=== PATIENT | male | born 1940 | race African-American/Black ===

== ENCOUNTER 2018-08-08 19:49 | Observation (INO) | payer OTHER ==
[~2018-08-08] VITALS: Ht 167.6 cm; Wt 64.9 kg
[~2018-08-08 19:49] MED LIST: ACET500T33 PO; AMLO5TAB4 PO; BUDE10.2 IH; CETI10TA22 PO; CHOL100013 PO; CRESTOR10 MG PO; DIPH25CA44 PO; LISI10TA2 PO; MIRA50TA PO; MONT10TA6 PO; OMEG1CAP27 PO; OMEP20CA10 PO; SOLI10TA2 PO; TRIA15CR TP; high blood pressure
[2018-08-08 20:13] LABS: BASO # 0.1 x10^3/uL (0.0-0.2); BASO % 1 % (0-3); EOS # 0.1 x10^3/uL (0.0-0.7); EOS % 2 % (0-3); HEMATOCRIT 44.6 % (39.0-53.0); HEMOGLOBIN 14.7 g/dL (13.0-17.5); LYMPH # 2.4 x10^3/uL (1.0-4.8); LYMPH % 40 % (24-48); MEAN CORPUSCULAR HEMOGLOBIN 30 pg (25-35); MEAN CORPUSCULAR HGB CONC 33 g/dL (31-37); MEAN CORPUSCULAR VOLUME 91 fL (79-100); MONO # 0.3 x10^3/uL (0.0-1.1); MONO % 6 % (0-9); NEUT % 51 % (31-73); PLATELET COUNT 241 x10^3/uL (140-400); RED BLOOD COUNT 4.88 x10^6/uL (4.30-5.70); RED CELL DISTRIBUTION WIDTH 14.3 % (11.5-14.5); WHITE BLOOD COUNT 5.9 x10^3/uL (4.0-11.0)
--- NOTE | 2018-08-08 20:17 | PHYS DOC ---
Past Medical History Past Medical History: High Cholesterol, Hypertension Additional Past Medical Histor: PROSTATE Past Surgical History: Other Additional Past Surgical Histo: PROSTATE Additional Information: nonsmoker Alcohol Use: None Drug Use: None Adult General Chief Complaint Chief Complaint: CHEST PAIN HPI HPI Patient is a 77-year-old male who is presenting with 2 weeks of left-sided chest pain. He reports that he came today because he has a family history of heart attacks and he felt like he needed to get checked out because it wasn't going away. He reports that the pain is sharp, is not made worse by activity, and he has not taken anything for the pain. 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 He reports that he has had a lot of funerals in the family within the last year and thinks that he may be suffering from some increased stress. He has a history of hypertension and hypercholesterolemia, but denies any past medical history with heart problems. He has a history of prostate cancer, his prostate was removed surgically and he takes oxybutynin for urinary frequency. He denies increased pain with a deep breath and palpation. He reports that he has had a mild cough for the last week. He denies trauma. Review of Systems Review of Systems Constitutional: Denies fever or chills [] Eyes: Denies change in visual acuity, redness, or eye pain [] HENT: Denies nasal congestion or sore throat [] Respiratory: Denies cough or shortness of breath [] Cardiovascular: Reports chest pain, denies palpitations [] GI: Denies abdominal pain, nausea, vomiting, and diarrhea [] Musculoskeletal: Denies back pain or joint pain [] Integument: Denies rash or skin lesions [] Neurologic: Denies headache, focal weakness or sensory changes [] Complete systems were reviewed and found to be within normal limits, except as documented in this note. Current Medications Current Medications Current Medications Medications (Trade) Dose Ordered Sig/Cookie Start Time Stop Time Status Last Admin Dose Admin Aspirin (Lio Aspirin) 325 mg 1X ONCE 08/08/18 20:30 08/08/18 20:31 DC 08/08/18 20:16 325 MG Sodium Chloride 1,000 ml @ 1,000 mls/hr 1X ONCE 08/08/18 20:30 08/08/18 21:29 DC 08/08/18 20:14 1,000 MLS/HR Allergies Allergies Allergies Coded Allergies Type Severity Reaction Last Updated Verified No Known Drug Allergies 05/22/14 No Physical Exam Physical Exam Constitutional: Well developed, well nourished, no acute distress, non-toxic appearance. [] HENT: Normocephalic, atraumatic, nose normal. [] Eyes: Conjunctiva normal, no discharge. [] Neck: Normal range of motion, no tenderness. [] Cardiovascular: Heart rate regular rhythm, no murmur, denies tenderness to palpation of the left chest [] Lungs & Thorax: Bilateral breath sounds clear to auscultation [] Abdomen: Bowel sounds normal, soft, no tenderness. [] Skin: Warm, dry, no erythema, no rash. [] Back: No tenderness, no CVA tenderness. [] Extremities: No tenderness, no edema. [] Neurologic: Alert and oriented X 3, no focal deficits noted. [] Psychologic: Affect normal, judgement normal, mood normal. [] Current Patient Data Vital Signs Vital Signs Date Time Temp Pulse Resp B/P (MAP) Pulse Ox O2 Delivery O2 Flow Rate FiO2 08/08/18 21:58 62 16 146/80 (102) 97 Room Air 08/08/18 19:55 98.9 98.9 Lab Values Laboratory Tests Test 08/08/18 20:00 White Blood Count 5.9 x10^3/uL (4.0-11.0) Red Blood Count 4.88 x10^6/uL (4.30-5.70) Hemoglobin 14.7 g/dL (13.0-17.5) Hematocrit 44.6 % (39.0-53.0) Mean Corpuscular Volume 91 fL (79-100) Mean Corpuscular Hemoglobin 30 pg (25-35) Mean Corpuscular Hemoglobin Concent 33 g/dL (31-37) Red Cell Distribution Width 14.3 % (11.5-14.5) Platelet Count 241 x10^3/uL (140-400) Neutrophils (%) (Auto) 51 % (31-73) Lymphocytes (%) (Auto) 40 % (24-48) Monocytes (%) (Auto) 6 % (0-9) Eosinophils (%) (Auto) 2 % (0-3) Basophils (%) (Auto) 1 % (0-3) Neutrophils # (Auto) 3.0 x10^3uL (1.8-7.7) Lymphocytes # (Auto) 2.4 x10^3/uL (1.0-4.8) Monocytes # (Auto) 0.3 x10^3/uL (0.0-1.1) Eosinophils # (Auto) 0.1 x10^3/uL (0.0-0.7) Basophils # (Auto) 0.1 x10^3/uL (0.0-0.2) Prothrombin Time 13.1 SEC (11.7-14.0) Prothrombin Time INR 1.0 (0.8-1.1) PTT 31 SEC (24-38) D-Dimer (Marline) 0.36 ug/mlFEU (0.00-0.50) Sodium Level 144 mmol/L (136-145) Potassium Level 4.1 mmol/L (3.5-5.1) Chloride Level 106 mmol/L (98-107) Carbon Dioxide Level 27 mmol/L (21-32) Anion Gap 11 (6-14) Blood Urea Nitrogen 15 mg/dL (8-26) Creatinine 1.2 mg/dL (0.7-1.3) Estimated GFR (Cockcroft-Gault) 71.4 BUN/Creatinine Ratio 13 (6-20) Glucose Level 91 mg/dL (70-99) Calcium Level 8.9 mg/dL (8.5-10.1) Magnesium Level 2.3 mg/dL (1.8-2.4) Total Bilirubin 0.3 mg/dL (0.2-1.0) Aspartate Amino Transferase (AST) 31 U/L (15-37) Alanine Aminotransferase (ALT) 48 U/L (16-63) Alkaline Phosphatase 68 U/L (46-116) Creatine Kinase 376 U/L (39-308) H Creatine Kinase MB (Mass) 2.4 ng/mL (0.0-3.6) Creatine Kinase MB Relative Index 0.6 % (0-4) Troponin I Quantitative < 0.017 ng/mL (0.000-0.055) NZ-Xmt-I-Type Natriuretic Peptide 48 pg/mL (0-449) Total Protein 7.4 g/dL (6.4-8.2) Albumin 3.8 g/dL (3.4-5.0) Albumin/Globulin Ratio 1.1 (1.0-1.7) Lipase 109 U/L (73-393) Laboratory Tests 08/08/18 20:00 Laboratory Tests 08/08/18 20:00 EKG EKG EKG @1956 Rate of 74 bpm, sinus rhythm, left axis deviation, left anterior fascicular block, no ST elevation Radiology/Procedures Radiology/Procedures PROCEDURE: CHEST PA & LATERAL EXAM: PA and Lateral Views of the Chest DATE: 08/08/2018 9:20 PM INDICATION: CHEST PAIN COMPARISON: 12/21/2014, 05/22/2014 FINDINGS: The heart is not enlarged. Aorta is mildly tortuous. Mediastinal and hilar contours are normal. No focal parenchymal airspace opacity. Calcified granulomas are seen within the right lung. No pleural effusion or pneumothorax. Eventration left hemidiaphragm. IMPRESSION: 1. No radiographic evidence for acute cardiopulmonary process. Electronically signed by: Aj Villalta MD (08/09/2018 5:56 AM) [facility] Course & Med Decision Making Course & Med Decision Making Pertinent Labs and Imaging studies reviewed. (See chart for details) Patient is a 77-year-old male is presenting with 2 weeks of dull left-sided chest pain that became sharp this morning. Labs and imaging obtained and posted to chart. EKG and initial troponin within normal limits. D-dimer negative, chest x-ray clear showing no acute pathology on initial ED reviewed. Past medical history of hypercholesterolemia and hypertension with a family history of heart attacks. Heart score of 5. Discussed admission with patient for further evaluation of cardiac etiology because of concerning history. Pain addressed and fluids administered. Patient requiring admission for further evaluation and treatment. Discussed with Dr. Orlando (PCP) who is in agreement with admission. Discussed findings and plan with patient and family, who acknowledge understanding and agreement. Dragon Disclaimer Dragon Disclaimer This electronic medical record was generated, in whole or in part, using a voice recognition dictation system. Departure Departure Impression: Primary Impression: Chest pain Disposition: ADMITTED INPATIENT Admitting Physician: Nasir Orlando Condition: STABLE Referrals: NASIR ORLANDO MD (PCP) Problem Qualifiers Primary Impression: Chest pain Chest pain type: unspecified Qualified Codes: R07.9 - Chest pain, unspecified SANTACRUZ,MARY ELLEN R DO Aug 08, 2018 20:17
[2018-08-08 20:25] LABS: CALCIUM 8.9 mg/dL (8.5-10.1); CREATININE 1.2 mg/dL (0.7-1.3); GFR 71.4; POTASSIUM 4.1 mmol/L (3.5-5.1)
[2018-08-08] MEDS ORDERED: ASPIRIN 325 MG TABLET PO ONE (20:30)
[2018-08-08] MEDS ORDERED: IV NORMAL SALINE 1000ML BAG 1,000 ML IV ONE (20:30)
[2018-08-08 20:34] LABS: PROTHROMBIN TIME PATIENT 13.1 SEC (11.7-14.0)
[2018-08-08 20:37] LABS: ALBUMIN 3.8 g/dL (3.4-5.0); ALBUMIN/GLOBULIN RATIO 1.1 (1.0-1.7); D-DIMER 0.36 ug/mlFEU (0.00-0.50); MAGNESIUM 2.3 mg/dL (1.8-2.4); TOTAL BILIRUBIN 0.3 mg/dL (0.2-1.0); TOTAL PROTEIN 7.4 g/dL (6.4-8.2)
[2018-08-08 22:30] LABS: BILIRUBIN,URINE NEGATIVE (NEG); CLARITY,URINE CLEAR; COLOR,URINE YELLOW; NITRITE,URINE NEGATIVE (NEG); PROTEIN,URINE NEGATIVE (NEG-TRACE); UROBILINOGEN,URINE 0.2 mg/dL (0.2 mg/dL)
[2018-08-08 22:38] LABS: BACTERIA,URINE 0 /HPF (0-FEW); RBC,URINE RARE /HPF (0-2); WBC,URINE OCC /HPF (0-4)
[2018-08-08] MEDS ORDERED: fentaNYL PF VIAL 100 MCG/2 ML VIAL IV PRN (23:00)
[2018-08-08] MEDS ORDERED: ONDANSETRON PF 4 MG/2 ML VIAL. IV PRN (23:00)
[2018-08-08 23:38] VITALS: BP 162/74
[2018-08-09] MEDS ORDERED: ATOR20TA58 PO (01:28)
[2018-08-09] MEDS ORDERED: OXYB10TA PO (01:28)
[2018-08-09 03:00] VITALS: BP 140/74
--- NOTE | 2018-08-09 05:58 | RAD ---
EXAM: PA and Lateral Views of the Chest DATE: 08/08/2018 9:20 PM INDICATION: CHEST PAIN COMPARISON: 12/21/2014, 05/22/2014 FINDINGS: The heart is not enlarged. Aorta is mildly tortuous. Mediastinal and hilar contours are normal. No focal parenchymal airspace opacity. Calcified granulomas are seen within the right lung. No pleural effusion or pneumothorax. Eventration left hemidiaphragm. IMPRESSION: 1. No radiographic evidence for acute cardiopulmonary process. Electronically signed by: Aj Villalta MD (08/09/2018 5:56 AM) [facility]
[2018-08-09 07:00] VITALS: BP 156/78
[2018-08-09] MEDS ORDERED: ACETAMINOPHEN 325 MG TABLET. PO PRN (09:15)
[2018-08-09] MEDS ORDERED: OXYBUTYNIN CHLORIDE 5 MG TABLET PO SCH (10:00)
[2018-08-09] MEDS ORDERED: amLODIPine BESYLATE 5 MG TABLET PO SCH (10:00)
[2018-08-09 11:00] VITALS: BP 150/80
--- NOTE | 2018-08-09 11:02 | PDOC ---
Provider Note Provider Note Patient seen. History and Physical dictated. See dictation#[id number] NASIR ORLANDO MD Aug 09, 2018 11:02
[2018-08-09] MEDS ORDERED: ASPI81TA50 PO (11:05)
--- NOTE | 2018-08-09 11:07 | DISCH ---
DISCHARGE INSTRUCTIONS Condition on Discharge Condition on Discharge: Stable Activity After Discharge Activity Instructions for Disc: Resume previous activity Diet after Discharge Diet after Discharge: Cardiac Diet Texture: Regular Checks after Discharge Checks after discharge: Check blood press - daily Contacting the after DC Call your doctor for: Concerns you may have Follow-Up Follow up with: Dr. NASIR Orlando in 5 days NASIR ORLANDO MD Aug 09, 2018 11:07
--- NOTE | 2018-08-09 11:12 | PDOC2 ---
CARDIOLOGY CONSULT NOTE CHEIF COMPLAINT: chest pain HPI: 77 year old AAM with a past medical history of HTN treated with Norvasc, hypercholesterolemia treated with atorvastatin, and family history significant for heart disease and DM2 presents to ED with a 2-week history of left mid- axillary region intermittent chest pain. Pt describes the chest pain as a "tightening" or "pressure" that sometimes radiates to his left neck/shoulder. He denies any triggers or aggravating factors. Patient notes that days before onset, he was lifting heavy tires and thinks that the pain is due to strain. 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 He denies fatigue , dizziness/lightheadedness, or syncopal episodes. Patient states he is very active and does not have any problems at all with work or ADLs. PMHX: Hypertension, Hypercholesterolemia, prostate cancer s/p chemotherapy and radiation 2005 SOCHX: never smoker, no alcohol use, no illicit drug use FAMHX: significant for heart disease and DM2 CURRENT MEDS: Current Medications Medications (Trade) Dose Ordered Sig/Cookie Start Time Stop Time Status Last Admin Dose Admin Acetaminophen (Tylenol) 650 mg PRN Q6HRS PRN 08/09/18 09:15 Amlodipine Besylate (Norvasc) 5 mg DAILY 08/09/18 10:00 08/09/18 10:26 5 MG Aspirin (Lio Aspirin) 325 mg 1X ONCE 08/08/18 20:30 08/08/18 20:31 DC 08/08/18 20:16 325 MG Atorvastatin Calcium (Lipitor) 20 mg HS 08/09/18 21:00 Fentanyl Citrate (Fentanyl 2ml Vial) 25 mcg PRN Q2HRS PRN 08/08/18 23:00 Ondansetron HCl (Zofran) 4 mg PRN Q8HRS PRN 08/08/18 23:00 08/09/18 22:59 Oxybutynin Chloride (Ditropan) 5 mg BID 08/09/18 10:00 08/09/18 10:26 5 MG Sodium Chloride 1,000 ml @ 1,000 mls/hr 1X ONCE 08/08/18 20:30 08/08/18 21:29 DC 08/08/18 20:14 1,000 MLS/HR ALLERGIES: Allergies Coded Allergies Type Severity Reaction Last Updated Verified No Known Drug Allergies 05/22/14 No ROS: Gen: no fatigue, weakness Head: no headache, nausea/vomiting Cardiac: no angina, FISHER, edema Resp: no SOB : +urinary frequency, incontinence PHYSICAL EXAM: Vital Signs: Vital Signs Date Time Temp Pulse Resp B/P (MAP) Pulse Ox O2 Delivery O2 Flow Rate FiO2 08/09/18 10:26 61 156/78 08/09/18 07:40 Room Air 08/09/18 07:00 97.9 18 98 97.9 I & O Intake and Output 08/09/18 06:59 Intake Total 240 ml Output Total 350 ml Balance -110 ml Intake Oral 240 ml Output Urine Total 350 ml # Voids 3 Physical Exam: Gen: NAD, pleasant, well-appearing and well-nourished. Neck: supple, normal ROM, no carotid bruits. Heart: Regular rate and rhythm, no murmurs, rubs, or gallops. Lungs: clear to auscultation bilaterally, no wheezes, rales, or rhonchi. Extr: normal ROM, no edema, +2 peripheral pulses palpable bilaterally. DIAGNOSTIC TESTING: EKG: SR with RBBB CXR: negative. Trop negative. ASSESSMENT: 1. Chest pain - Probable MSK, less likely UA. 2. HTN 3. Dyslipidemia 4. DM2 PLAN: 1. Will plan for outpt stress testing given his risk factors. 2. Consider increase in amlodipine for BP control. 3. Overall, low risk given atypical nature, negative enzymes and no significant EKG abnormalities. CAMPOS GRADY MD Aug 09, 2018 11:12
--- NOTE | 2018-08-09 14:44 | EKG ---
[facility] [address] [place] [address] Test Date: 2018-08-08 Test Time: 19:56:11 Pat Name: NHUNG ROCKWELL Department: Room: 250 1 Gender: M Clinical Lab Technologist: : 1940 Requested By: MARY ELLEN SANTACRUZ Order Number: [id number] Reading MD: Sky Marcum Measurements Intervals [place] Rate: 74 P: 36 [place]: 192 QRS: -65 QRSD: 128 T: 7 QT: 390 QTc: 433 Interpretive Statements SINUS RHYTHM ABNORMAL LEFT AXIS DEVIATION LEFT ANTERIOR FASCICULAR BLOCK RIGHT BUNDLE BRANCH BLOCK RVH WITH REPOLARIZATION ABNORMALITY Electronically Signed On 08-18-2018 12:35:23 CDT by Sky Marcum
--- NOTE | 2018-08-09 14:53 | NUR ---
Discharge Note: NHUNG ROCKWELL Discharge instructions and discharge home medications reviewed with Patient and a copy given. All questions have been answered and understanding verbalized. The following instructions and handouts were given: cardiac diet, chest pain, follow up appointments, medications. Discontinued lines and drains: IV removed, no lines present. Patient discharged to home. left via wheelchair to private vehicle.
--- NOTE | 2018-08-09 15:23 | HP ---
ADMIT DATE: 08/08/2018 ADMITTING PHYSICIAN: Nasir Orlando MD. HISTORY OF PRESENT ILLNESS: This 77-year-old male started having chest pains on the left side of the chest since last Saturday. On Saturday, he had lifted some heavy weights including tiles. The pain lasts a few seconds at a time, sometimes with slight spasm. It is not radiating. The patient denies any dyspnea or pain on inspiration. The patient denies any nausea, heartburn, cold, cough, congestion, fever or chills. He denies any sweating, dizziness or palpitations when he has these episodes. Yesterday, he felt that it was getting slightly worse and because of the recurrent pain, he came to the Emergency Room. In the Emergency Room, EKG showed left anterior fascicular block with some intraventricular conduction delay, no old EKG available for comparison. Cardiac enzymes and troponin levels were normal, although CPK was elevated at 376. Because of the chest pains, it was decided to admit the patient for further evaluation and management. SYSTEMS REVIEW: At present time, the patient is feeling better. His pain is improving. He states that he has had some episodes of anxiety recently. He denies any dyspnea, dizziness, palpitations or chest pains at this time. Other systems reviewed and are negative. PAST MEDICAL HISTORY: The patient has a history of hypertension, hyperlipidemia. I do believe previously, he has had elevated CPK. PAST SURGICAL HISTORY: The patient had carcinoma of prostate and prostate surgery followed by urinary incontinence. SOCIAL HISTORY: No history of smoking, alcoholism or drug abuse. FAMILY HISTORY: One brother had myocardial infarction. He in his 70s and one brother had myocardial infarction and asthma. Father had cancer, type not known. MEDICATIONS: Reviewed and reconciled. ALLERGIES: None known any. PHYSICAL EXAMINATION: VITAL SIGNS: Temperature 98.9, pulse 76 per minute, respirations 16 per minute, blood pressure 159/84 mmHg on admission and went up to 180/100 mmHg. GENERAL: The patient is alert, oriented x 3 and not in any acute distress. He is slightly anxious. EYES: Pupils reacting to light. Conjunctivae pink. Sclerae muddy. HENT: Unremarkable. SKIN: Warm and dry. There is no cyanosis. NECK: Supple. JVP normal. No thyromegaly. Trachea midline. LUNGS: Decreased breath sounds at bases, clear. CARDIOVASCULAR: S1, S2 regular. ABDOMEN: Soft, nontender, no guarding, no rigidity. Liver, spleen, kidney not palpable. Bowel sounds present. EXTREMITIES: No edema. CENTRAL NERVOUS SYSTEM: Moves all extremities. No acute changes. Alert and oriented. CHEST: No tenderness in the left upper chest. LABORATORY FINDINGS: CPK is 376. Troponin levels are normal. Albumin 3.8, sodium 144, potassium 4.1, BUN 15, creatinine 1.2, WBC count 5.9, hemoglobin 14.7. INR 1. Urinalysis is negative. Chest x-ray did not show any acute changes. FINAL DIAGNOSES: 1. Chest pain, possibly musculoskeletal. 2. Hypertension. 3. Carcinoma of prostate. 4. Urinary incontinence. 5. Anxiety. PLAN: 1. The patient is doing well now. We will check with the way of Cardiology consultation with Dr. Forte. If it is okay with the hospital food service worker, we will discharge him later today. He has been kept n.p.o. for the stress test. Clinically, doing well. 2. Follow up in the office in five days. DIET: Cardiac. ACTIVITY: As tolerated. We will start baby aspirin 81 mg daily. For details, please refer to the orders. Discharge management 35 minutes. Other discharge management 45 minutes. NASIR ORLANDO MD DR: ARMANDO/kami JOB#: [id number] / [id number]
[2018-08-09] MEDS ORDERED: ATORVASTATIN CALCIUM 20 MG TABLET PO SCH (21:00)
== END 2018-08-09 14:20 | disposition home or self-care (01) ==
LOC: ER 19:49 → 2 SOUTH 22:15
PROVIDERS: ADMIT Internal Medicine; ATTEND Internal Medicine
DX: R07.89 Other chest pain (principal); E78.00 Pure hypercholesterolemia, unspecified; I10 Essential (primary) hypertension; I44.4 Left anterior fascicular block; E78.5 Hyperlipidemia, unspecified; R32 Unspecified urinary incontinence; F41.9 Anxiety disorder, unspecified; Z82.49 Family history of ischemic heart disease and other diseases of the circulatory system; Z85.46 Personal history of malignant neoplasm of prostate
CPT/HCPCS: 36415; 71046; 80053; 81001; 82553; 83690; 83735; 83880; 84484; 85025; 85379; 85610; 85730; 93005; 99284; G0378; G0379; J7030

== ENCOUNTER 2019-03-19 10:53 | Emergency (ER) | payer OTHER ==
[~2019-03-19] VITALS: Ht 160 cm; Wt 66.2 kg
[~2019-03-19 10:53] MED LIST changes: +ASPI81TA50 PO; +ATOR20TA58 PO; +MONT10TA49 PO; -MONT10TA6 PO; +OXYB10TA2 PO
--- NOTE | 2019-03-19 12:21 | EKG ---
[facility] [address] [place] [address] Test Date: 2019-03-19 Test Time: 12:19:30 Pat Name: NHUNG ROCKWELL Department: Room: Gender: M Software Team Leader: : 1940 Requested By: BRIEN JAMA Order Number: [id number] Reading MD: Sky Marcum Measurements Intervals [place] Rate: 81 P: 48 MS: 188 QRS: -58 QRSD: 128 T: 10 QT: 388 QTc: 451 Interpretive Statements SINUS RHYTHM ABNORMAL LEFT AXIS DEVIATION LEFT ANTERIOR FASCICULAR BLOCK RIGHT BUNDLE BRANCH BLOCK ABNORMAL ECG Electronically Signed On 03-23-2019 14:45:59 VICE PRESIDENT OF OPERATIONS by Sky Marcum
[2019-03-19 12:23] LABS: BASO # 0.1 x10^3/uL (0.0-0.2); BASO % 1 % (0-3); EOS # 0.1 x10^3/uL (0.0-0.7); EOS % 2 % (0-3); HEMATOCRIT 47.8 % (39.0-53.0); LYMPH # 2.2 x10^3/uL (1.0-4.8); LYMPH % 32 % (24-48); MEAN CORPUSCULAR HEMOGLOBIN 31 pg (25-35); MEAN CORPUSCULAR HGB CONC 34 g/dL (31-37); MEAN CORPUSCULAR VOLUME 92 fL (79-100); MONO # 0.5 x10^3/uL (0.0-1.1); MONO % 7 % (0-9); NEUT % 58 % (31-73); PLATELET COUNT 237 x10^3/uL (140-400); RED BLOOD COUNT 5.18 x10^6/uL (4.30-5.70); RED CELL DISTRIBUTION WIDTH 14.1 % (11.5-14.5); WHITE BLOOD COUNT 6.8 x10^3/uL (4.0-11.0)
--- NOTE | 2019-03-19 12:42 | RAD ---
Single view of the chest. 03/19/2019 12:31 PM Indication: Syncope Comparison: Chest radiograph August 08, 2018 Findings: Elevation of the left hemidiaphragm is similar. There is no focal consolidation. There is no pleural effusion or pneumothorax. Heart size is normal. No acute osseous abnormalities are seen. Impression: No evidence of acute cardiopulmonary process. Electronically signed by: Aren Louis MD (03/19/2019 12:39 PM) [facility]
--- NOTE | 2019-03-19 12:47 | RAD ---
CT HEAD WITHOUT CONTRAST 03/19/2019 12:13 PM Indication: Syncope Comparison: CT head without contrast December 21, 2014 Procedure: Multidetector CT imaging of the head was performed without the administration of contrast. Findings: There is no evidence of acute intracranial hemorrhage. There is no evidence of acute territorial infarction. Please note that CT is limited for evaluation of acute ischemia. Patchy periventricular and deep white hypoattenuation is similar to comparison study suggestive of chronic small vessel disease. No mass effect or midline shift is identified . The ventricles and basilar cisterns have an appropriate appearance. No abnormal extra-axial fluid collections are seen. No acute osseous changes are identified. Impression: No evidence of acute intracranial abnormality CT DOSING PQRS STATEMENT: One or more of the following individualized dose reduction techniques were utilized for this examination: 1. Automated exposure control 2. Adjustment of the mA and/or kV according to patient size 3. Use of iterative reconstruction technique Electronically signed by: Aren Louis MD (03/19/2019 12:44 PM) [id number]
[2019-03-19 13:11] LABS: CALCIUM 8.8 mg/dL (8.5-10.1); CREATININE 1.2 mg/dL (0.7-1.3); GFR 71.2; POTASSIUM 3.9 mmol/L (3.5-5.1)
[2019-03-19 13:17] LABS: ALBUMIN 3.7 g/dL (3.4-5.0); ALBUMIN/GLOBULIN RATIO 0.8 (1.0-1.7); MAGNESIUM 2.2 mg/dL (1.8-2.4); TOTAL BILIRUBIN 0.4 mg/dL (0.2-1.0); TOTAL PROTEIN 8.1 g/dL (6.4-8.2)
[2019-03-19 14:06] LABS: BILIRUBIN,URINE NEGATIVE (NEG); CLARITY,URINE CLEAR; COLOR,URINE YELLOW; NITRITE,URINE NEGATIVE (NEG); PROTEIN,URINE NEGATIVE (NEG-TRACE); UROBILINOGEN,URINE 0.2 mg/dL (0.2 mg/dL)
[2019-03-19 14:11] LABS: BARBITURATES NEG (NEG); BENZODIAZEPINES POS (NEG); CANNABINOIDS NEG (NEG); COCAINE NEG (NEG); METHADONE NEG (NEG); OPIATES NEG (NEG); PHENCYCLIDINE NEG (NEG)
[2019-03-19 14:13] LABS: BACTERIA,URINE 0 /HPF (0-FEW); RBC,URINE OCC /HPF (0-2); WBC,URINE 0 /HPF (0-4)
[2019-03-19 14:14] LABS: SQUAMOUS EPITHELIAL CELL,UR OCC /LPF
[2019-03-19 14:19] LABS: AMPHETAMINE/METHAMPHETAMINE NEG (NEG)
[2019-03-19 14:51] VITALS: BP 148/82
--- NOTE | 2019-03-19 15:16 | PHYS DOC ---
Past Medical History Past Medical History: High Cholesterol, Hypertension Additional Past Medical Histor: PROSTATE CA Past Surgical History: Other Additional Past Surgical Histo: PROSTATE Alcohol Use: None Drug Use: None Adult General Chief Complaint Chief Complaint: SYNCOPE HPI HPI Patient is a 78 year old male patient who presents to the ED today to be evaluated for falling yesterday. Patient had cataract surgery to the left eye yesterday, went home, and apparently fell while walking. Patient himself denies any loss of consciousness. Family reports he could've passed out. Patient denies any other symptoms. Review of Systems Review of Systems Constitutional: Denies fever or chills [] Eyes: Denies change in visual acuity, redness, or eye pain [] HENT: Denies nasal congestion or sore throat [] Respiratory: Denies cough or shortness of breath [] Cardiovascular: No additional information not addressed in HPI [] GI: Denies abdominal pain, nausea, vomiting, bloody stools or diarrhea [] : Denies dysuria or hematuria [] Musculoskeletal: Reports falling. Denies back pain or joint pain [] Integument: Denies rash or skin lesions [] Neurologic: Reports possible syncope. Denies headache, focal weakness or sensory changes [] All other systems were reviewed and found to be within normal limits, except as documented in this note. Allergies Allergies Allergies Coded Allergies Type Severity Reaction Last Updated Verified No Known Drug Allergies 05/22/14 No Physical Exam Physical Exam Constitutional: Well developed, well nourished, no acute distress, non-toxic appearance. [] HENT: Normocephalic, atraumatic, bilateral external ears normal, oropharynx moist, no oral exudates, nose normal. [] Eyes: Bilateral eyes with dark glasses. PERRLA, EOMI, left conjunctiva is slightly red post op, no discharge. [] Neck: Normal range of motion, no tenderness, supple, no stridor. [] Cardiovascular:Heart rate regular rhythm, no murmur [] Lungs & Thorax: Bilateral breath sounds clear to auscultation [] Abdomen: Bowel sounds normal, soft, no tenderness, no masses, no pulsatile masses. [] Skin: Warm, dry, no erythema, no rash. [] Back: No tenderness, no CVA tenderness. [] Extremities: No tenderness, no cyanosis, no clubbing, ROM intact, no edema. [] Neurologic: Alert and oriented X 3, normal motor function, normal sensory function, no focal deficits noted. Cranial nerves II through XII intact. Psychologic: Affect normal, judgement normal, mood normal. [] Current Patient Data Vital Signs Vital Signs Date Time Temp Pulse Resp B/P (MAP) Pulse Ox O2 Delivery O2 Flow Rate FiO2 03/19/19 14:51 77 148/82 (104) 98 03/19/19 12:00 98.3 16 Room Air 98.3 Lab Values Laboratory Tests Test 03/19/19 12:10 03/19/19 12:50 03/19/19 13:47 White Blood Count 6.8 x10^3/uL (4.0-11.0) Red Blood Count 5.18 x10^6/uL (4.30-5.70) Hemoglobin 16.0 g/dL (13.0-17.5) Hematocrit 47.8 % (39.0-53.0) Mean Corpuscular Volume 92 fL (79-100) Mean Corpuscular Hemoglobin 31 pg (25-35) Mean Corpuscular Hemoglobin Concent 34 g/dL (31-37) Red Cell Distribution Width 14.1 % (11.5-14.5) Platelet Count 237 x10^3/uL (140-400) Neutrophils (%) (Auto) 58 % (31-73) Lymphocytes (%) (Auto) 32 % (24-48) Monocytes (%) (Auto) 7 % (0-9) Eosinophils (%) (Auto) 2 % (0-3) Basophils (%) (Auto) 1 % (0-3) Neutrophils # (Auto) 4.0 x10^3/uL (1.8-7.7) Lymphocytes # (Auto) 2.2 x10^3/uL (1.0-4.8) Monocytes # (Auto) 0.5 x10^3/uL (0.0-1.1) Eosinophils # (Auto) 0.1 x10^3/uL (0.0-0.7) Basophils # (Auto) 0.1 x10^3/uL (0.0-0.2) Creatine Kinase 463 U/L (39-308) H Creatine Kinase MB (Mass) 3.0 ng/mL (0.0-3.6) Creatine Kinase MB Relative Index 0.6 % (0-4) Troponin I Quantitative < 0.017 ng/mL (0.000-0.055) BE-Jzg-G-Type Natriuretic Peptide 40 pg/mL (0-449) Thyroid Stimulating Hormone (TSH) 0.638 uIU/mL (0.358-3.74) Sodium Level 143 mmol/L (136-145) Potassium Level 3.9 mmol/L (3.5-5.1) Chloride Level 105 mmol/L (98-107) Carbon Dioxide Level 28 mmol/L (21-32) Anion Gap 10 (6-14) Blood Urea Nitrogen 19 mg/dL (8-26) Creatinine 1.2 mg/dL (0.7-1.3) Estimated GFR (Cockcroft-Gault) 71.2 BUN/Creatinine Ratio 16 (6-20) Glucose Level 85 mg/dL (70-99) Calcium Level 8.8 mg/dL (8.5-10.1) Magnesium Level 2.2 mg/dL (1.8-2.4) Total Bilirubin 0.4 mg/dL (0.2-1.0) Aspartate Amino Transferase (AST) 20 U/L (15-37) Alanine Aminotransferase (ALT) 23 U/L (16-63) Alkaline Phosphatase 66 U/L (46-116) Total Protein 8.1 g/dL (6.4-8.2) Albumin 3.7 g/dL (3.4-5.0) Albumin/Globulin Ratio 0.8 (1.0-1.7) L Urine Collection Type Unknown Urine Color Yellow Urine Clarity Clear Urine pH 6.0 Urine Specific [place]on 1.015 Urine Protein Negative mg/dL (NEG-TRACE) Urine Glucose (UA) Negative mg/dL (NEG) Urine Ketones (Stick) Negative mg/dL (NEG) Urine Blood Negative (NEG) Urine Nitrite Negative (NEG) Urine Bilirubin Negative (NEG) Urine Urobilinogen Dipstick 0.2 mg/dL (0.2 mg/dL) Urine Leukocyte Esterase Negative (NEG) Urine RBC Occ /HPF (0-2) Urine WBC 0 /HPF (0-4) Urine Squamous Epithelial Cells Occ /LPF Urine Bacteria 0 /HPF (0-FEW) Urine Mucus Slight /LPF Urine Opiates Screen Neg (NEG) Urine Methadone Screen Neg (NEG) Urine Barbiturates Neg (NEG) Urine Phencyclidine Screen Neg (NEG) Urine Amphetamine/Methamphetamine Neg (NEG) Urine Benzodiazepines Screen Pos (NEG) Urine Cocaine Screen Neg (NEG) Urine Cannabinoids Screen Neg (NEG) Urine Ethyl Alcohol Neg (NEG) Laboratory Tests 03/19/19 12:10 Laboratory Tests 03/19/19 12:50 EKG EKG Interpreted by Dr. Jaimes ST elevations on lead I, V2, v3, ST inversion on V 1, EKG unchanged from 08/08/2018[] Radiology/Procedures Radiology/Procedures []PROCEDURE: PORTABLE CHEST 1V Single view of the chest. 03/19/2019 12:31 PM Indication: Syncope Comparison: Chest radiograph August 08, 2018 Findings: Elevation of the left hemidiaphragm is similar. There is no focal consolidation. There is no pleural effusion or pneumothorax. Heart size is normal. No acute osseous abnormalities are seen. Impression: No evidence of acute cardiopulmonary process. Electronically signed by: Aren Clark MD (03/19/2019 12:39 PM) [facility] DICTATED and SIGNED BY: AREN CLARK MD DATE: 03/19/19 1239 PROCEDURE: CT HEAD WO CONTRAST CT HEAD WITHOUT CONTRAST 03/19/2019 12:13 PM Indication: Syncope Comparison: CT head without contrast December 21, 2014 Procedure: Multidetector CT imaging of the head was performed without the administration of contrast. Findings: There is no evidence of acute intracranial hemorrhage. There is no evidence of acute territorial infarction. Please note that CT is limited for evaluation of acute ischemia. Patchy periventricular and deep white hypoattenuation is similar to comparison study suggestive of chronic small vessel disease. No mass effect or midline shift is identified . The ventricles and basilar cisterns have an appropriate appearance. No abnormal extra-axial fluid collections are seen. No acute osseous changes are identified. Impression: No evidence of acute intracranial abnormality CT DOSING PQRS STATEMENT: One or more of the following individualized dose reduction techniques were utilized for this examination: 1. Automated exposure control 2. Adjustment of the mA and/or kV according to patient size 3. Use of iterative reconstruction technique Electronically signed by: Aren Clark MD (03/19/2019 12:44 PM) [facility] DICTATED and SIGNED BY: AREN CLARK MD DATE: 03/19/19 1244 Course & Med Decision Making Course & Med Decision Making Pertinent Labs and Imaging studies reviewed. (See chart for details) This is a 78-year-old male patient presenting to the ED today to be evaluated for fall he had yesterday. Patient had cataract surgery went home and was ambulating and fell. Patient denies any loss of consciousness. CT of the head is negative, chest x-ray is negative, EKG negative for any acute findings, labs were negative. Patient was discharged back to home. Provided return precautions and discharged in stable condition. Dragon Disclaimer Dragon Disclaimer This electronic medical record was generated, in whole or in part, using a voice recognition dictation system. Departure Departure Impression: Primary Impression: Fall Disposition: 01 HOME, SELF-CARE Condition: STABLE Referrals: NASIR ORLANDO MD (PCP) follow up in one week Patient Instructions: Fall Prevention and Home Safety Additional Instructions: Your work up in the emergency room was negative for any acute findings. Please follow-up with your own doctor in the next 1 week. Problem Qualifiers Primary Impression: Fall Encounter type: initial encounter Qualified Codes: W19.XXXA - Unspecified fall, initial encounter BRIEN JAMA TUB WASH OPERATOR Mar 19, 2019 15:16
== END 2019-03-19 15:22 | disposition home or self-care (01) ==
LOC: ER 10:53
DX: H57.89 Other specified disorders of eye and adnexa (principal); R55 Syncope and collapse; E78.00 Pure hypercholesterolemia, unspecified; I10 Essential (primary) hypertension; W18.39XA Other fall on same level, initial encounter; Y93.01 Activity, walking, marching and hiking; Y92.89 Other specified places as the place of occurrence of the external cause; Y99.8 Other external cause status
CPT/HCPCS: 36415; 70450; 71045; 80053; 80307; 81001; 82553; 83735; 83880; 84443; 84484; 85025; 93005; 99285

== ENCOUNTER 2019-06-12 01:18 | Emergency (ER) | payer BC, OTHER ==
[~2019-06-12] VITALS: Ht 162.6 cm; Wt 64.0 kg
[~2019-06-12 01:18] MED LIST changes: -CETI10TA22 PO; +CETI10TA24 PO; -OMEP20CA10 PO; +OMEP20CA16 PO; -OXYB10TA2 PO; +OXYB10TA26 PO
--- NOTE | 2019-06-12 01:42 | PHYS DOC ---
Past Medical History Past Medical History: High Cholesterol, Hypertension Additional Past Medical Histor: PROSTATE CA Past Surgical History: Other Additional Past Surgical Histo: PROSTATE Smoking Status: Never Smoker Alcohol Use: None Drug Use: None Adult General Chief Complaint Chief Complaint: DIZZY/LIGHT HEADED [facility] HPI Patient is a 78 year oldnxu-clze-sbq male past medical history hypertension hyperlipidemia presents with a chief complaint of dizziness associated with left neck and shoulder pain. Patient states he woke up around 12:30 AM and felt dizzy and lightheaded. Patient states he had some left-sided neck discomfort that radiated down to his left shoulder. Patient describes the discomfort as a tightness. Patient denies any associated shortness of breath. States he felt kind of sweaty. Patient concerned about a stroke. Patient had no associated headache slurred speech or focal weakness.At the time my exam patient's pain and dizziness had completely resolved. Review of Systems Review of Systems Constitutional: Denies fever or chills [] Eyes: Denies change in visual acuity, redness, or eye pain [] HENT: Denies nasal congestion or sore throat [] Respiratory: Denies cough or shortness of breath [] Cardiovascular: No additional information not addressed in HPI [] GI: Denies abdominal pain, nausea, vomiting, bloody stools or diarrhea [] : Denies dysuria or hematuria [] Musculoskeletal: Denies back pain or joint pain [] Integument: Denies rash or skin lesions [] Neurologic: Denies headache, focal weakness or sensory changes [] Endocrine: Denies polyuria or polydipsia [] All other systems were reviewed and found to be within normal limits, except as documented in this note. Allergies Allergies Allergies Coded Allergies Type Severity Reaction Last Updated Verified No Known Drug Allergies 05/22/14 No Physical Exam Physical Exam Constitutional: Well developed, well nourished, no acute distress, non-toxic appearance. [] HENT: Normocephalic, atraumatic, bilateral external ears normal, oropharynx moist, no oral exudates, nose normal. [] Eyes: PERRLA, EOMI, conjunctiva normal, no discharge. [] Neck: Normal range of motion, no tenderness, supple, no stridor. [] Cardiovascular:Heart rate regular rhythm, no murmur [] Lungs & Thorax: Bilateral breath sounds clear to auscultation [] Abdomen: Bowel sounds normal, soft, no tenderness, no masses, no pulsatile masses. [] Skin: Warm, dry, no erythema, no rash. [] Back: No tenderness, no CVA tenderness. [] Extremities: No tenderness, no cyanosis, no clubbing, ROM intact, no edema. [] Neurologic: Alert and oriented X 3, normal motor function, normal sensory function, no focal deficits noted. [] Psychologic: Affect normal, judgement normal, mood normal. [] Current Patient Data Vital Signs Vital Signs Date Time Temp Pulse Resp B/P (MAP) Pulse Ox O2 Delivery O2 Flow Rate FiO2 06/12/19 01:57 97.5 73 16 138/80 (99) 94 Room Air 97.5 Lab Values Laboratory Tests Test 06/12/19 03:55 White Blood Count 5.2 x10^3/uL (4.0-11.0) Red Blood Count 5.24 x10^6/uL (4.30-5.70) Hemoglobin 16.0 g/dL (13.0-17.5) Hematocrit 47.6 % (39.0-53.0) Mean Corpuscular Volume 91 fL (79-100) Mean Corpuscular Hemoglobin 31 pg (25-35) Mean Corpuscular Hemoglobin Concent 34 g/dL (31-37) Red Cell Distribution Width 14.2 % (11.5-14.5) Platelet Count 238 x10^3/uL (140-400) Neutrophils (%) (Auto) 52 % (31-73) Lymphocytes (%) (Auto) 33 % (24-48) Monocytes (%) (Auto) 9 % (0-9) Eosinophils (%) (Auto) 4 % (0-3) H Basophils (%) (Auto) 1 % (0-3) Neutrophils # (Auto) 2.7 x10^3/uL (1.8-7.7) Lymphocytes # (Auto) 1.7 x10^3/uL (1.0-4.8) Monocytes # (Auto) 0.5 x10^3/uL (0.0-1.1) Eosinophils # (Auto) 0.2 x10^3/uL (0.0-0.7) Basophils # (Auto) 0.1 x10^3/uL (0.0-0.2) Sodium Level 142 mmol/L (136-145) Potassium Level 3.6 mmol/L (3.5-5.1) Chloride Level 105 mmol/L (98-107) Carbon Dioxide Level 30 mmol/L (21-32) Anion Gap 7 (6-14) Blood Urea Nitrogen 18 mg/dL (8-26) Creatinine 1.2 mg/dL (0.7-1.3) Estimated GFR (Cockcroft-Gault) 71.2 BUN/Creatinine Ratio 15 (6-20) Glucose Level 100 mg/dL (70-99) H Calcium Level 9.2 mg/dL (8.5-10.1) Total Bilirubin 0.4 mg/dL (0.2-1.0) Aspartate Amino Transferase (AST) 19 U/L (15-37) Alanine Aminotransferase (ALT) 27 U/L (16-63) Alkaline Phosphatase 74 U/L (46-116) Troponin I Quantitative < 0.017 ng/mL (0.000-0.055) Total Protein 7.9 g/dL (6.4-8.2) Albumin 3.7 g/dL (3.4-5.0) Albumin/Globulin Ratio 0.9 (1.0-1.7) L Laboratory Tests 06/12/19 03:55 Laboratory Tests 06/12/19 03:55 EKG EKG [0130hrs] Interpretation Time: Sinus rhythm rate of [address] elevation left axis deviation and intraventricular block Radiology/Procedures Radiology/Procedures [] Impressions: CT head and chest x-ray within normal limits Course & Med Decision Making Course & Med Decision Making Pertinent Labs and Imaging studies reviewed. (See chart for details) []Was evaluated for chief complaint. Workup consisted of EKG laboratory analysis and radiologic imaging. Results reviewed and discussed with patient. CT head no acute abnormality chest x-ray within normal limits. Patient's troponin negative. At the time my exam patient's symptoms had completely resolved. Patient was discharged home with instruction to follow up with primary care physician. Patient bike to return to the ER if symptoms return persist or any new concerning symptoms arise. Dragon Disclaimer Dragon Disclaimer This electronic medical record was generated, in whole or in part, using a voice recognition dictation system. Departure Departure Referrals: NASIR ORLANDO MD (PCP) RANDEE TATE DO Jun 12, 2019 01:42
--- NOTE | 2019-06-12 02:22 | EKG ---
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
--- NOTE | 2019-06-12 02:40 | RAD ---
CHEST AP ONLY Clinical Indication: Chest pain Comparison: AP chest March 19, 2019. Findings: The cardiomediastinal silhouette is normal. Lungs are clear. There is no pneumothorax. No pleural effusion is appreciated. No acute bone abnormality. IMPRESSION: No acute cardiopulmonary process. Electronically signed by: Fish Gillis MD (06/12/2019 2:37 AM) [id number]
[2019-06-12 04:04] LABS: BASO # 0.1 x10^3/uL (0.0-0.2); BASO % 1 % (0-3); EOS # 0.2 x10^3/uL (0.0-0.7); EOS % 4 % (0-3); HEMATOCRIT 47.6 % (39.0-53.0); LYMPH # 1.7 x10^3/uL (1.0-4.8); LYMPH % 33 % (24-48); MEAN CORPUSCULAR HEMOGLOBIN 31 pg (25-35); MEAN CORPUSCULAR HGB CONC 34 g/dL (31-37); MEAN CORPUSCULAR VOLUME 91 fL (79-100); MONO # 0.5 x10^3/uL (0.0-1.1); MONO % 9 % (0-9); NEUT # 2.7 x10^3/uL (1.8-7.7); NEUT % 52 % (31-73); PLATELET COUNT 238 x10^3/uL (140-400); RED BLOOD COUNT 5.24 x10^6/uL (4.30-5.70); RED CELL DISTRIBUTION WIDTH 14.2 % (11.5-14.5); WHITE BLOOD COUNT 5.2 x10^3/uL (4.0-11.0)
[2019-06-12 04:20] LABS: CALCIUM 9.2 mg/dL (8.5-10.1); CREATININE 1.2 mg/dL (0.7-1.3); GFR 71.2; POTASSIUM 3.6 mmol/L (3.5-5.1)
[2019-06-12 04:26] LABS: ALBUMIN 3.7 g/dL (3.4-5.0); ALBUMIN/GLOBULIN RATIO 0.9 (1.0-1.7); TOTAL BILIRUBIN 0.4 mg/dL (0.2-1.0); TOTAL PROTEIN 7.9 g/dL (6.4-8.2)
--- NOTE | 2019-06-12 04:26 | RAD ---
RS Compliance Statement: One or more of the following individualized dose reduction techniques were utilized for this examination: 1. Automated exposure control 2. Adjustment of the mA and/or kV according to patient size 3. Use of iterative reconstruction technique CT HEAD WITHOUT CONTRAST History: Dizziness. Comparison: CT head without contrast March 19, 2019. Procedure: Axial images are obtained of the head from the skull base through the vertex without IV contrast. Findings: The ventricles and sulci are normal for the patient's age. There is unchanged minimal supratentorial white matter hypoattenuation. This is a nonspecific finding but is commonly due to chronic small vessel ischemic disease in a patient of this age. No mass-effect, midline shift, hemorrhage, extra-axial fluid collection, or obvious acute infarction is identified. Basilar cisterns are patent. Bone windows demonstrate no acute calvarial abnormality. The visualized paranasal sinuses are clear. Mastoid air cells are well aerated. IMPRESSION: No acute intracranial abnormality. Electronically signed by: Fish Gillis MD (06/12/2019 4:24 AM) [id number]
[2019-06-12 05:26] VITALS: BP 158/86
--- NOTE | 2019-06-12 06:15 | EKG ---
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
--- NOTE | 2019-06-14 00:17 | EKG ---
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
== END 2019-06-12 05:44 | disposition home or self-care (01) ==
LOC: ER 01:18
DX: M25.512 Pain in left shoulder (principal); M54.2 Cervicalgia; R42 Dizziness and giddiness; E78.00 Pure hypercholesterolemia, unspecified; I10 Essential (primary) hypertension; Z98.890 Other specified postprocedural states
CPT/HCPCS: 36415; 70450; 71045; 80053; 84484; 85025; 93005; 99285

== ENCOUNTER → 2019-07-06 | Day surgery (SDC) | payer BC ==
[~2019-07-06] MED LIST changes: +CETI10TA16 PO; +GLYCOPYRROLATE 1 MG/5 ML VIAL. ONE; +IV RINGERS,LACTATED 1000ML 1,000 ML IV SCH; +LIDOCAINE 2% PF 5 ML VIAL. ONE; +PROPOFOL 40 ML IV ONE; +ePHEDrine PF IN SALINE 50 MG/10 ML SYRINGE. IV ONE
--- NOTE | 2019-07-06 13:27 | PDOC4 ---
PROCEDURE Procedure Colonoscopy with biopsies. Indication: h/o polyps, last 2010 Meds: per anesthesia. Findings: ISABELL--prostate absent. --'Scope advanced to cecum. Mucosa normal. No diverticula seen. --4 mm polyp, cecum and 5mm polyp mid-transverse, biopsied off. --post-radiation changes in rectum. --Small internal hemorrhoids. Toll. well. IMP: Small polyps Internal hemorrhoids Post-radiation proctitis REC: Resume home meds and diet. Await path. F/u in 2 weeks. Repeat exam pending path. MARY ELLEN MARTIN MD Jul 06, 2019 13:27
[2019-07-06 13:40] VITALS: BP 142/79
--- NOTE | 2019-07-08 18:06 | PATHOLOGY ---
[facility] Accession Number: [id number] . 01 Material submitted: . PART A: cecum - CECAL POLYP PART B: colon - TRANSVERSE POLYP. Modifiers: transverse . 01 Clinical history: . Hx polyps . 02 Diagnosis: A. Colon biopsies, cecal polyp: - Tubular adenoma. . B. Colon biopsy, transverse colon polyp: - Tubular adenoma. (JPM:milka; 07/08/2019) . QMS 07/08/2019 1003 Local . 02 Comment: There is no high grade dysplasia or evidence of malignancy. . 02 Electronically signed: . Moris Yu MD, Pathologist NPI- [id number] . 01 Gross description: . A. The specimen is received in formalin, labeled "Union, Gavino, cecal polyp" and consists of 2 fragments of pink-garcia tissue measuring 0.2 x 0.2 cm and 0.3 x 0.2 cm which are entirely submitted in A1. . B. The specimen is received in formalin, labeled "Union, Gavino, transverse polyp" and consists of a fragment of pink-garcia tissue measuring 0.2 x 0.2 cm which is entirely submitted in B1. (SDY; 07/07/2019) SYU/SYU 07/07/2019 1111 Local . 02 Pathologist provided ICD-10: D12.0, D12.3 . 02 CPT . 897135, [id number] Specimen Comment: A courtesy copy of this report has been sent to [phone], [phone] Specimen Comment: [id number] Specimen Comment: Report sent to / DR ORLANDO Performed at: [address], [place], [place] [id number] MD Devang Vernon MD Phone: [phone] Performed at: [address] [id number] MD Moris Yu MD Phone: [phone]
== END ==
LOC: ENDOS 12:03
PROVIDERS: ATTEND Internal Medicine Gastroenterology
DX: Z12.11 Encounter for screening for malignant neoplasm of colon (principal); D12.0 Benign neoplasm of cecum; D12.3 Benign neoplasm of transverse colon; K64.0 First degree hemorrhoids; I10 Essential (primary) hypertension; E78.00 Pure hypercholesterolemia, unspecified; E66.9 Obesity, unspecified; Z68.35 Body mass index [BMI] 35.0-35.9, adult; Z85.46 Personal history of malignant neoplasm of prostate; Z86.010 Personal history of colon polyps; Z98.890 Other specified postprocedural states; Z98.42 Cataract extraction status, left eye; Z96.1 Presence of intraocular lens
CPT/HCPCS: 45380; J0171; J2001; J2704; J3490; 88305

== ENCOUNTER → 2021-06-26 | Outpatient (CLI) | payer MEDICARE ==
[2019-07-06 13:40] VITALS: BP 142/79
[~2021-06-26] MED LIST changes: -CETI10TA24 PO; +CETI10TA74 PO; -GLYCOPYRROLATE 1 MG/5 ML VIAL. ONE; -IV RINGERS,LACTATED 1000ML 1,000 ML IV SCH; -LIDOCAINE 2% PF 5 ML VIAL. ONE; +LISI10TA16 PO; -LISI10TA2 PO; +MIRA25TA PO; -MIRA50TA PO; -PROPOFOL 40 ML IV ONE; -ePHEDrine PF IN SALINE 50 MG/10 ML SYRINGE. IV ONE
--- NOTE | 2021-06-26 16:55 | CARD ---
MR#: [id number] Date of Study: 06/26/2021 Ordering Physician: CAMPOS GRADY, Referring Physician: CAMPOS GRADY, Tech: Osvaldo Pandya [facility] APPROVED REPORT EXAM: Two-dimensional and M-mode echocardiogram with Doppler and color Doppler. Other Information Quality : GoodHR: 89bpm Rhythm : NSR INDICATION Chest Pain RISK FACTORS Hypertension 2D DIMENSIONS Left Atrium(2D)3.2 (1.6-4.0cm)IVSd0.9 (0.7-1.1cm) Aortic Root(2D)3.1 (2.0-3.7cm)LVDd3.7 (3.9-5.9cm) LVOT Diameter1.9 (1.8-2.4cm)PWd0.9 (0.7-1.1cm) LVDs1.9 (2.5-4.0cm)FS (%) 48.1 % SV47.6 ml Aortic Valve AoV Peak Jeff.135.7cm/sAoV VTI27.9cm AO Peak GR.7.4mmHgLVOT Peak Jeff.114.9cm/s LVOT VTI 24.39cmAO Mean GR.4mmHg YOHANNES (VMAX)1.58zh3CAX (VTI)2.56cm2 Mitral Valve MV E Agilixzc32.0cm/sMV DECEL [id number] MV A Qrujjryk281.4cm/sMV YYW70lv E/A Ratio0.8MVA (PHT)3.06cm2 TDI E/Lateral E'17.6E/Medial E'14.9 Pulmonary Valve PV Peak Ukdcevqg02.0cm/sPV Peak Grad.4mmHg Tricuspid Valve TR P. Abaacvez794hk/sTR Peak Gr.30mmHg Pulmonary Vein S1 Jrriyjzx69.0cm/sD2 Zrpbycjs08.0cm/s LEFT VENTRICLE The left ventricle is normal size. There is borderline to mild concentric left ventricular hypertroph y. The left ventricular systolic function is normal and the ejection fraction is within normal range. LV ejection fraction of 60 to 65%. There is normal LV segmental wall motion. No left ventricle throm bus noted on this study. There is no ventricular septal defect visualized. There is no left ventricul ar aneurysm. There is no mass noted in the left ventricle. RIGHT VENTRICLE The right ventricle is normal size. There is normal right ventricular wall thickness. The right ventr icular systolic function is normal. ATRIA The left atrium is mildly dilated. The right atrium size is normal. The interatrial septum is intact with no evidence for an atrial septal defect or patent foramen ovale as noted on 2-D or Doppler imagi ng. AORTIC VALVE The aortic valve is mildly sclerotic. Doppler and Color Flow revealed trace to mild aortic regurgitat ion. There is no significant aortic valvular stenosis. There is no aortic valvular vegetation. MITRAL VALVE The mitral valve is normal in structure and function. There is no evidence of mitral valve prolapse. There is no mitral valve stenosis. Doppler and Color Flow revealed trace mitral valve regurgitation. TRICUSPID VALVE The tricuspid valve is normal in structure and function. The PA pressure was estimated at 38 mmHg. Do ppler and Color Flow revealed mild tricuspid regurgitation. There is no tricuspid valve prolapse or v egetation. There is no tricuspid valve stenosis. PULMONIC VALVE The pulmonary valve is normal in structure and function. Doppler and Color Flow revealed no pulmonic valvular regurgitation. There is no pulmonic valvular stenosis. GREAT VESSELS The aortic root is normal in size. The ascending aorta is normal in size. The pulmonary artery is nor mal. The IVC is normal in size and collapses >50% with inspiration. PERICARDIAL EFFUSION There is no pleural effusion. There is no evidence of significant pericardial effusion. Critical Notification Critical Value: No <Conclusion> The left ventricle is normal size. The left ventricular systolic function is normal and the ejection fraction is within normal range. LV ejection fraction of 60 to 65%. There is borderline to mild concentric left ventricular hypertrophy. Doppler and Color Flow revealed trace to mild aortic regurgitation. There is no significant aortic valvular stenosis. Doppler and Color Flow revealed trace mitral valve regurgitation. The PA pressure was estimated at 38 mmHg. Doppler and Color Flow revealed mild tricuspid regurgitation. Signed by : Brian Graham MD Electronically Approved : 06/26/2021 16:55:08
== END ==
LOC: ECHO 09:45
PROVIDERS: ATTEND Internal Medicine Cardiovascular Disease
DX: I08.2 Rheumatic disorders of both aortic and tricuspid valves (principal); R07.9 Chest pain, unspecified
CPT/HCPCS: 93306; C8929